=== PATIENT | female | born 1980 | race Caucasian/White ===

== ENCOUNTER 2020-06-08 17:25 | Emergency (ER) | payer OTHER, MEDICARE ==
[~2020-06-08 17:25] MED LIST: ALBUTEROL2.5 MG/3 M INH; ATROVENT HFA12.9 GM INH; IPRATROPIU0.2 MG/1 M INH; NEBULIZER MACHINE; PREDNISONE20 MG PO; ROBITUSSIN DM UD5 ML PO
[2020-06-09] MEDS ORDERED: HYDROCODON-ACE1 EAC4 PO (07:50)
[2020-06-09] MEDS ORDERED: IBUPROFEN600 MG PO (07:52)
== END 2020-06-09 09:15 | disposition home or self-care (01) ==
LOC: ER1 17:25
DX: S13.4XXA Sprain of ligaments of cervical spine, initial encounter (principal); S23.3XXA Sprain of ligaments of thoracic spine, initial encounter; S33.5XXA Sprain of ligaments of lumbar spine, initial encounter; S20.211A Contusion of right front wall of thorax, initial encounter; M25.511 Pain in right shoulder; I10 Essential (primary) hypertension; V49.50XA Passenger injured in collision with unspecified motor vehicles in traffic accident, initial encounter; Y92.410 Unspecified street and highway as the place of occurrence of the external cause; Z20.822 Contact with and (suspected) exposure to COVID-19
CPT/HCPCS: 71045; 71250; 72125; 72128; 72131; 73030; 81001; 84703; 93005; 99284; U0003

== ENCOUNTER → 2021-03-01 | Outpatient (CLI) | payer OTHER ==
[~2021-03-01] MED LIST changes: +HYDROCODON-ACE1 EAC4 PO; +IBUPROFEN600 MG PO
== END ==
LOC: MAMO 10:16
DX: N61.23 Granulomatous mastitis, bilateral breast (principal)
CPT/HCPCS: 76641; 77066; G0279